=== PATIENT | male | born 1970 | race Caucasian/White ===

== ENCOUNTER 2018-07-14 18:49 | Inpatient (IN) ==
[2018-07-14] MEDS ORDERED: Morphine Inj 4 MG/ML Vial IV.PUSH ONE (19:36)
[2018-07-14] MEDS ORDERED: Sod Chloride 0.9% Inj 1,000 ML IV.SIG SCH (19:45)
--- NOTE | 2018-07-14 19:46 | ED ---
HPI General Chief complaint: Dental/Oral Stated complaint: Jaw Edema and throat pain Time Seen by Provider: 07/14/18 19:31 History of Present Illness HPI narrative: 47-year-old male seen in the emergency department 2 days ago and diagnosed with sialoadenitis on the right, advised to be admitted at that time for IV antibiotic therapy, stated he needed to be discharged home to take care of his family, was discharged home with clindamycin, reevaluated in the emergency department yesterday and was once again advised admission, however once again needed to leave to take care of his family, has been on oral clindamycin for the last 2 days, here for evaluation of worsening neck pain and swelling and inability to swallow. Pain is severe, constant, sharp/pressure- like. He has had subjective fevers and chills. States he is unable to swallow liquids. He reports compliance with clindamycin. No respiratory difficulty. Related Data Home Medications Medication Instructions Recorded Confirmed ibuprofen 800 mg PO QID PRN 07/12/18 07/14/18 Previous Rx's Medication Instructions Recorded clindamycin HCl 300 mg PO Q6H 10 Days #80 cap 07/12/18 Allergies Allergy/AdvReac Type Severity Reaction Status Date / Time penicillin G Allergy Mild Appetite Verified 07/14/18 19:03 Changes (Inc/Dec) *MDRO Multi-Drug Resistant Allergy Unknown Appetite Uncoded 07/12/18 01:32 Organism Changes (Inc/Dec) Review of Systems ROS: all other systems reviewed are negative PMFSH Social History Social History Substance History: No History of Abuse Second Hand Smoke Exposure: Yes Smoking Status: Current every day smoker Tobacco Type: Cigarettes How Often Do You Have a Drink Containing Alcohol: Monthly or less Recent Travel in [facility] within the Last 8 Weeks: No Recent Out of Country Travel within the Last 8 Weeks: No Immunization History Tetanus Immunization: Unsure Exam Narrative Exam Narrative: GENERAL: Well-developed, well-nourished, awake, alert, appears uncomfortable, no apparent distress. SKIN: Patient has a ugalde, however there is erythema and warmth to the anterior neck with underlying induration and moderate edema. HEAD: Atraumatic. Normocephalic. EYES: Pupils equal and round. No scleral icterus. No injection or drainage. ENT: 1 finger trismus with significant sublingual edema. I am unable to evaluate the patient's pharynx. Hoarse phonation. No drooling or stridor. Mucous membranes pink and moist. NECK: Patient has a ugalde, however there is erythema and warmth to the anterior neck with underlying induration and moderate edema. CARDIOVASCULAR: Regular rate and rhythm. RESPIRATORY: No accessory muscle use. Clear to auscultation. Breath sounds equal bilaterally. GASTROINTESTINAL: Abdomen soft, non-tender, nondistended. MUSCULOSKELETAL: No obvious deformities. No clubbing. No cyanosis. No edema. NEUROLOGICAL: Awake and alert. No obvious cranial nerve deficits. Motor grossly within normal limits. Normal speech. PSYCHIATRIC: Appropriate mood and affect; insight and judgment normal. Course Initial Documented Vital Signs Temperature 98.4 F 07/14/18 19:03 Pulse Rate 95 H 07/14/18 19:03 Respiratory Rate 18 07/14/18 19:03 Blood Pressure 189/78 H 07/14/18 19:03 Pulse Oximetry 98 07/14/18 19:03 Last Documented Vital Signs Temperature 98.4 F 07/14/18 19:03 Pulse Rate 78 07/14/18 21:09 Respiratory Rate 18 07/14/18 21:09 Blood Pressure 167/85 H 07/14/18 21:09 Pulse Oximetry 98 07/14/18 21:09 Critical Care Time Total Critical Care Time: 35 Attestation: Aggregate critical care time was 35 minutes. Time to perform other separately billable procedures was not included in the critical care time. My time did not include minutes spent treating any other patients simultaneously or on activities that did not directly contribute to the patient's treatment. The services I provided to this patient were to treat and/or prevent clinically significant deterioration that could result in: , permanent disability, airway compromise/failure, sepsis I provided critical care services requiring my management, as noted below: Chart data review, documentation time, medication orders and management, vital sign assessments/reviewing monitor data, ordering and reviewing lab tests, ordering and interpreting/reviewing x-rays and diagnostic studies, care of the patient and discussion of the patient with the admitting physicians. Medical Decision Making MDM Narrative Medical decision making narrative: Vital signs reviewed. The patient has been on clindamycin 600 mg every 4 hours for the last 2 days and his symptoms seem to be worsening. He is allergic to penicillin. He will be given 2 g of IV cefepime and 500 mg of IV Flagyl. Will also be given 10 mg of IV Decadron as well as 4 mg of IV morphine. CBC is remarkable for leukocytosis of 23,000. CT soft tissue neck: CONCLUSION: Interim development of a right sublingual abscess. 9:10 PM: Case discussed with on-call craniofacial surgeon Dr. Fields who would like the patient to be transferred/admitted to the [facility] after midnight, plans for I&D in the OR tomorrow morning. 9:15 PM: Case discussed with on-call breaker engineer Dr. Lucas who will admit the patient to the breaker engineer service at the main ICU. Patient was made aware of all findings and plan. All questions were answered. Medical Screen Exam Complete: Yes Emergency Medical Condition: Yes Differential Diagnosis Differential Diagnosis: Jose's angina, deep space neck infection, sialoadenitis, dehydration, sepsis Medical Records Medical records reviewed: Yes I reviewed the patient's medical records. Lab Data Result diagrams: 07/14/18 19:45 07/14/18 19:45 Lab Results 07/14/18 07/14/18 07/14/18 Range/Units 19:45 19:45 19:45 CBC w Diff Slide review pending WBC 23.7 H (4.0-11.0) th/mm3 RBC 4.74 (4.50-5.90) mil/mm3 Hgb 15.3 (13.0-17.0) gm/dL Hct 44.8 (39.0-51.0) % MCV 94.5 (80.0-100.0) fL MCH 32.2 (27.0-34.0) pg MCHC 34.0 (32.0-36.0) % RDW 12.1 (11.6-17.2) % Plt Count 173 (150-450) th/mm3 MPV 8.4 (7.0-11.0) fL Neut % (Auto) 81.4 H (16.0-70.0) % Lymph % (Auto) 8.6 L (9.0-44.0) % [place] % (Auto) 7.4 (0.0-8.0) % Eos % (Auto) 0.6 (0.0-4.0) % Baso % (Auto) 2.0 (0.0-2.0) % Neut # (Auto) 19.3 H (1.8-7.7) th/mm3 Lymph # (Auto) 2.0 (1.0-4.8) th/mm3 [place] # (Auto) 1.8 H (0.0-0.9) th/mm3 Eos # (Auto) 0.1 (0.0-0.4) th/mm3 Baso # (Auto) 0.5 H (0.0-0.2) th/mm3 WBC Differential . Diff Scan Auto diff confirmed Differential Comment . PT 10.5 (9.8-11.6) sec INR 1.0 Ratio APTT 25.7 (24.3-30.1) sec Sodium 140 (136-145) meq/L Potassium 3.7 (3.5-5.1) meq/L Chloride 105 (98-107) meq/L Carbon Dioxide 21.9 (21.0-32.0) meq/L Anion Gap 13 (5-15) meq/L BUN 16 (7-18) mg/dL Creatinine 1.20 (0.60-1.30) mg/dL Estimated GFR 65 L (>89) mL/min Random Glucose 79 (74-106) mg/dL Lactic Acid (0.4-2.0) mmol/L Calcium 8.9 (8.5-10.1) mg/dL Total Bilirubin 0.7 (0.2-1.0) mg/dL AST 18 (15-37) U/L ALT 22 (12-78) U/L Alkaline Phosphatase 58 (45-117) U/L Total Protein 7.8 (6.4-8.2) g/dL Albumin 3.5 (3.4-5.0) g/dL 07/14/18 Range/Units 19:45 CBC w Diff WBC (4.0-11.0) th/mm3 RBC (4.50-5.90) mil/mm3 Hgb (13.0-17.0) gm/dL Hct (39.0-51.0) % MCV (80.0-100.0) fL MCH (27.0-34.0) pg MCHC (32.0-36.0) % RDW (11.6-17.2) % Plt Count (150-450) th/mm3 MPV (7.0-11.0) fL Neut % (Auto) (16.0-70.0) % Lymph % (Auto) (9.0-44.0) % [place] % (Auto) (0.0-8.0) % Eos % (Auto) (0.0-4.0) % Baso % (Auto) (0.0-2.0) % Neut # (Auto) (1.8-7.7) th/mm3 Lymph # (Auto) (1.0-4.8) th/mm3 [place] # (Auto) (0.0-0.9) th/mm3 Eos # (Auto) (0.0-0.4) th/mm3 Baso # (Auto) (0.0-0.2) th/mm3 WBC Differential Diff Scan Differential Comment PT (9.8-11.6) sec INR Ratio APTT (24.3-30.1) sec Sodium (136-145) meq/L Potassium (3.5-5.1) meq/L Chloride (98-107) meq/L Carbon Dioxide (21.0-32.0) meq/L Anion Gap (5-15) meq/L BUN (7-18) mg/dL Creatinine (0.60-1.30) mg/dL Estimated GFR (>89) mL/min Random Glucose (74-106) mg/dL Lactic Acid 0.8 (0.4-2.0) mmol/L Calcium (8.5-10.1) mg/dL Total Bilirubin (0.2-1.0) mg/dL AST (15-37) U/L ALT (12-78) U/L Alkaline Phosphatase (45-117) U/L Total Protein (6.4-8.2) g/dL Albumin (3.4-5.0) g/dL Imaging Data Radiologist's impression: Soft Tissue Neck CT 07/14/18 19:36 CONCLUSION: Interim development of a right sublingual abscess. Discharge Plan Discharge Disposition Patient Disposition: 30 Still Patient Discharge Condition Condition: Fair Discharge Details Diagnosis: Abscess of sublingual gland Physicians Team ED Provider: Wade Dominique Primary Care Provider: Primary Care PhysiciIrene Rxs /Orders / Referrals /Forms Prescriptions: No Action ibuprofen 800 mg Tablet 800 mg PO QID PRN (Reason: Pain) RF: 0 clindamycin HCl 150 mg capsule 300 mg PO Q6H 10 Days Qty: 80 RF: 0 Discharge Interventions Interventions: Vital Signs Last Done: 07/14/18 21:09 Status ED Status: With Doctor
[2018-07-14] MEDS ORDERED: Dexamethasone Inj 20 MG/5 ML Vial IV.PUSH ONE (19:51)
[2018-07-14 20:02] LABS: Baso # (Auto) 0.5 th/mm3 (0.0-0.2); Eos # (Auto) 0.1 th/mm3 (0.0-0.4); Eos % (Auto) 0.6 % (0.0-4.0); Hematocrit 44.8 % (39.0-51.0); Hemoglobin 15.3 gm/dL (13.0-17.0); Lymph % (Auto) 8.6 % (9.0-44.0); Mean Corpuscular Hemoglobin 32.2 pg (27.0-34.0); Mean Corpuscular Volume 94.5 fL (80.0-100.0); Mean Platelet Volume 8.4 fL (7.0-11.0); Mono # (Auto) 1.8 th/mm3 (0.0-0.9); Mono % (Auto) 7.4 % (0.0-8.0); Neut # (Auto) 19.3 th/mm3 (1.8-7.7); Neut % (Auto) 81.4 % (16.0-70.0); Platelet Count 173 th/mm3 (150-450); Red Blood Count 4.74 mil/mm3 (4.50-5.90); Red Cell Distribution Width 12.1 % (11.6-17.2); White Blood Count 23.7 th/mm3 (4.0-11.0)
[2018-07-14 20:06] LABS: Chloride 105 meq/L (98-107); Potassium 3.7 meq/L (3.5-5.1); Sodium 140 meq/L (136-145)
[2018-07-14 20:09] LABS: Calcium 8.9 mg/dL (8.5-10.1)
[2018-07-14 20:10] LABS: Albumin 3.5 g/dL (3.4-5.0); Anion Gap 13 meq/L (5-15); Blood Urea Nitrogen 16 mg/dL (7-18); Carbon Dioxide 21.9 meq/L (21.0-32.0); Glucose,Random 79 mg/dL (74-106)
[2018-07-14 20:11] LABS: Activated Partial Thrombo Time 25.7 sec (24.3-30.1); Prothrombin Time 10.5 sec (9.8-11.6)
[2018-07-14 20:13] LABS: Alanine Aminotransferase 22 U/L (12-78); Aspartate Aminotransferase 18 U/L (15-37); Glomerular Filtration Rate 65 mL/min (>89)
[2018-07-14 20:15] LABS: Total Protein 7.8 g/dL (6.4-8.2)
[2018-07-14 20:16] LABS: Alkaline Phosphatase 58 U/L (45-117)
--- NOTE | 2018-07-14 20:57 | CT ---
EXAM DATE: 07/14/2018 8:12 PM EDT AGE/SEX: 47 years / Male INDICATIONS: Abscess. Trouble swallowing and speaking. CLINICAL DATA: This is the patient's initial encounter. Patient reports that signs and symptoms have been present for 1 week and indicates a pain score of 3/10. MEDICAL/SURGICAL HISTORY: None. . Unspecified brain surgery. RADIATION DOSE: 12.13 CTDI (mGy) COMPARISON: [facility], CT SOFT TISSUE NECK W CONTRAST, 07/12/2018. . TECHNIQUE: Helical acquisition was performed using a multirow detector CT scanner during the adminis tration of 90 ml Omnipaque 350 (iohexol) nonionic water-soluble contrast as a single exam dose. Usi ng automated exposure control and adjustment of the mA and/or kV according to patient size, radiation dose was kept as low as reasonably achievable to obtain optimal diagnostic quality images. DICOM fo rmat image data is available electronically for review and comparison. FINDINGS: A rim-enhancing fluid collection as developed in the right sublingual region measuring 3.0 x 4.4 x 3. 0 cm in size. It appears to be separate from the right submandibular gland. There are right jugular d igastric lymph nodes that measure up to 12 mm in greatest short axis dimension. No acute bony abnormality demonstrated. Visualized lung apices are clear. CONCLUSION: Interim development of a right sublingual abscess. Electronically signed by: Misael Farris MD 07/14/2018 8:56 PM EDT
[2018-07-14] MEDS ORDERED: Vancomycin Consult Pharmacy OTHER PRN (21:18)
[2018-07-14] MEDS ORDERED: Bisacodyl 10 MG Supp RECTAL PRN (21:25)
[2018-07-14] MEDS ORDERED: Morphine Sulfate Inj 2 MG/ML Vial IV.PUSH PRN (21:25)
[2018-07-14] MEDS ORDERED: Ketorolac Inj 30 MG/ML (IVP) Vial IV.PUSH PRN (21:32)
[2018-07-14] MEDS ORDERED: Vancomycin Inj 1,000 MG in Sodium Chlor 0.9% Inj 250 ML IV.SIG SCH (23:00)
[2018-07-14] MEDS: Morphine Inj 4 MG/ML Vial IV.PUSH PRN (23:36)
[2018-07-15] MEDS ORDERED: Dextrose 50% in Water 50 ML Vial IV.PUSH PRN (00:40)
--- NOTE | 2018-07-15 00:51 | P.HPCC ---
History of Present Illness Service: Critical care medicine Primary Care Physician: No Primary Care Physician Chief Complaint: Submandibular pain and swelling History of Present Illness: 47-year-old male with no significant past medical history states that he developed pain and swelling under his jaw on 07/10/18. It progressively worsened and he has been evaluated in the emergency department on 2 prior occasions for this. It was recommended that he be admitted for IV antibiotics however he refused admission because he needed to get home to care for his children. He had a CT 07/12 which suggested sialoadenitis. He has been taking clindamycin p.o. at home. Despite that he has had progressive pain and swelling in the submandibular space and now has trismus and voice changes. No fever. He has dental caries with pain at right mandibular 1st molar. He presented to [facility] where he had an additional CT scan that demonstrates sublingual abscess with laryngeal deviation. He received cefepime, Flagyl IV, Decadron 10 mg IV in the emergency department. Dr. Fields was consulted and requested transfer to [facility] for operative management. He evaluated patient with me upon arrival and has decided to take patient to OR urgently. Inpatient Certification: I certify that the inpatient services were ordered in accordance with Medicare regulations governing the order. This includes certification that hospital inpatient services are reasonable and necessary and in the case of services not specified as inpatient-only under 42 CFR 419.22(n), that they are appropriately provided as inpatient services in accordance to with the 2-midnight benchmark under 43 CFR 412.3(e) Estimated Total Length of Stay (Days): 3 Plans for Post Hospital Care: Home Review of Systems All other systems reviewed negative except as [facility] - History History Provided By: Patient - Medical History Medical History: Medical History (Last Updated 07/15/18 @ 02:41 by Barbara Lucas MD) Hx of benign neoplasm of brain Patient denies medical problems - Family History Family History: Family History (Last Updated 07/15/18 @ 02:41 by Barbara Lucas MD) Father CAD (coronary artery disease) - Tobacco History Second Hand Smoke Exposure: No Tobacco Use In Past 30 Days: Yes Smoking Status: Light tobacco smoker Tobacco Type: Cigarettes, Cigars Cigarettes Per Day: 2 - Alcohol History How Often Do You Have a Drink Containing Alcohol: 2 to 4 times a month - Substance Use History Substance History: No History of Abuse - Travel History Recent Travel in the [place] Within the Last 8 Weeks: No Recent Travel Out of the Country Within the Last 8 Weeks: No - Immunization History Tetanus Immunization: Unsure Medications and Allergies Active Medications: Active Medications Al Hydroxide/Mg Hydroxide (Milk Of Magnesia Liq) 30 ml PO Q12H PRN PRN Reason: Mild Constipation Bisacodyl (Dulcolax Supp) 10 mg RECTAL DAILY PRN PRN Reason: SEVERE CONSITIPATION Chlorhexidine Gluconate (Chlorhexidine 2% Cloth) 3 pack TOPICAL DAILY@0400 EMMA Stop: 07/20/18 03:59 Chlorhexidine Gluconate (Chlorhexidine 2% Cloth) 3 pack TOPICAL DAILY@0400 PRN PRN Reason: Extra cloth needed Stop: 07/20/18 03:59 Dexamethasone Sodium Phosphate (Decadron Inj) 8 mg IM ONCE ONE Stop: 07/15/18 14:01 Dextrose (D50w Vial) 50 ml IV.PUSH UNSCH PRN PRN Reason: PER HYPOGLYCEMIA PROTOCOL Glucagon (Glucagon Inj) 1 mg OTHER PRN PRN PRN Reason: for Hypoglycemia Protocol Sodium Chloride (Ns Inj) 1,000 mls @ 0 mls/hr IV.SIG BOLUS EMMA Last Infusion: 07/14/18 21:08 Dose: Infused Vancomycin HCl 1,000 mg/ (Sodium Chloride) 250 mls @ 250 mls/hr IV.SIG Q12H EMMA Last Admin: 07/14/18 23:38 Dose: 250 mls/hr Metronidazole/Sodium Chloride (Flagyl 500 Mg Inj) 100 mls @ 100 mls/hr IV.SIG Q8H EMMA Cefepime HCl 2,000 mg/ Sodium (Chloride) 100 mls @ 200 mls/hr IV.SIG Q8H EMMA Insulin Aspart (Novolog Insulin Correctional Sugar Inj) 0 unit SQ ACHS EMMA; Protocol Ketorolac Tromethamine (Toradol Inj) 30 mg IV.PUSH Q6H PRN PRN Reason: pain Stop: 07/19/18 21:31 Lactobacillus Acidophilus (Lactinex) 1 tab PO BID EMMA Lactulose (Lactulose Liq) 30 ml PO DAILY PRN PRN Reason: SEVERE CONSITIPATION Methylprednisolone Sodium Succinate (Solumedrol Inj) 125 mg IV.PUSH Q6H EMMA Stop: 07/15/18 07:01 Miscellaneous Information ([facility]dered Lab Info) 0 each OTHER ONCE ONE Stop: 07/16/18 10:46 Morphine Sulfate (Morphine Inj) 2 mg IV.PUSH Q2H PRN PRN Reason: breakthrough pain 1-5 Morphine Sulfate (Morphine Inj) 4 mg IV.PUSH Q2H PRN PRN Reason: breakthrough pain 6-10 Last Admin: 07/14/18 23:36 Dose: 4 mg Ondansetron HCl (Zofran Inj) 4 mg IV.PUSH Q6H PRN PRN Reason: NAUSEA OR VOMITING Pantoprazole Sodium (Protonix Inj) 40 mg IV.PUSH DAILY [facility] Pharmacy Profile Note (Vancomycin Consult Pharmacy) 1 each OTHER UNSCH PRN PRN Reason: Pharmacy to dose Senna/Docusate Sodium (Lydia-Colace) 1 tab PO BID [facility] Sennosides (Senokot) 17.2 mg PO Q12H PRN PRN Reason: Moderate Constipation Sodium Chloride (Ns Flush) 2 ml IV.FLUSH BID [facility] Sodium Chloride (Ns Flush) 2 ml IV.FLUSH PRN PRN PRN Reason: FLUSH AFTER USING IV ACCESS Allergies Allergy/AdvReac Type Severity Reaction Status Date / Time penicillin G Allergy Mild Appetite Verified 07/14/18 19:03 Changes (Inc/Dec) *MDRO Multi-Drug Resistant Allergy Unknown Appetite Uncoded 07/12/18 01:32 Organism Changes (Inc/Dec) Home Medications Medication Instructions Recorded Confirmed Type ibuprofen 800 mg PO QID PRN 07/12/18 07/14/18 History Results - Labs CBC & Chem 7: 07/14/18 19:45 07/14/18 19:45 Labs: Short CBC 07/14/18 Range/Units 19:45 WBC 23.7 H (4.0-11.0) th/mm3 Hgb 15.3 (13.0-17.0) gm/dL Hct 44.8 (39.0-51.0) % Plt Count 173 (150-450) th/mm3 BMP 07/14/18 19:45 Sodium 140 Potassium 3.7 Chloride 105 Carbon Dioxide 21.9 BUN 16 Creatinine 1.20 Calcium 8.9 Liver Function 07/14/18 Range/Units 19:45 Total Bilirubin 0.7 (0.2-1.0) mg/dL AST 18 (15-37) U/L ALT 22 (12-78) U/L Alkaline Phosphatase 58 (45-117) U/L Albumin 3.5 (3.4-5.0) g/dL - Imaging Impressions Soft Tissue Neck CT 07/14/18 19:36 CONCLUSION: Interim development of a right sublingual abscess. Exam Vital signs: Vital Signs 07/14/18 19:03 07/14/18 19:17 07/14/18 19:51 Temperature 98.4 F Pulse Rate 95 H 87 Respiratory Rate 18 18 Blood Pressure 189/78 H Pulse Oximetry 98 98 98 07/14/18 21:09 07/14/18 21:57 07/14/18 22:07 Temperature Pulse Rate 78 81 Respiratory Rate 18 18 Blood Pressure 167/85 H 166/84 H Pulse Oximetry 98 98 98 07/14/18 22:46 Temperature Pulse Rate 78 Respiratory Rate 18 Blood Pressure Pulse Oximetry 98 Intake & Output 07/14/18 07/14/18 07/15/18 06:59 18:59 06:59 Intake Total 1200 / 1200 Balance 1200 / 1200 Weight 84.8 kg Intake: IV 1200 / 1200 Maxipime Inj 2,000 MG In NS Inj 100 / 100 100 ML @ 200 mls/hr IV.SIG ONCE ONE Rx#:[id number] NS Inj 1,000 ML @ Wide Open IV. 1000 / 1000 SIG BOLUS EMMA Rx#:[id number] Flagyl 500 MG Inj 100 ML @ 100 100 / 100 mls/hr IV.SIG ONCE ONE Rx#: [id number] Narrative: GENERAL: Well-nourished, well-developed patient who is alert and interactive. Slightly anxious SKIN: Warm and dry. HEAD: Atraumatic. Normocephalic. EYES: Pupils equal and round. No scleral icterus. No injection or drainage. ENT: There is firm tender mass-like swelling in submandibular space, R>L with mild/moderate trismus. There is decay of right first mandibular molar. No nasal bleeding or discharge. Mucous membranes pink and moist. NECK: No JVD. CARDIOVASCULAR: Regular rate and rhythm. No murmurs rubs or gallops. RESPIRATORY: Breathing comfortably no accessory muscle use. Clear to auscultation bilaterally without stridor. GASTROINTESTINAL: Abdomen soft, non-tender, nondistended. Bowel sounds present. MUSCULOSKELETAL: Extremities without clubbing, cyanosis, or edema. No obvious deformities. NEUROLOGICAL: Awake and alert. No obvious cranial nerve deficits. Motor grossly within normal limits. Caprini VTE Risk Assessment Caprini VTE Risk Assessment: Moderate/High Risk (score >= 2) Caprini Risk Assessment Model: Point Value = 1 Point Value = 2 Point Value = 3 Point Value = 5 Age 41-60 Minor surgery BMI > 25 kg/m2 Swollen legs Varicose veins or History of unexplained or recurrent spontaneous Oral contraceptives or hormone replacement Sepsis (< 1 month) Serious lung disease, including pneumonia (< 1 month) Abnormal pulmonary function Acute myocardial infarction Congestive heart failure (< 1 month) History of inflammatory bowel disease Medical patient at bed rest Age 61-74 Arthroscopic surgery Major open surgery (> 45 min) Laparoscopic surgery (> 45 min) Malignancy Confined to bed (> 72 hours) Immobilizing plaster cast Central venous access Age >= 75 History of VTE Family history of VTE Factor V Leiden Prothrombin [id number] Lupus anticoagulant Anticardiolipin antibodies Elevated serum homocysteine Heparin-induced thrombocytopenia Other congenital or acquired thrombophilia Stroke (< 1 month) Elective arthroplasty Hip, pelvis, or leg fracture Acute spinal cord injury (< 1 month) Prophylaxis Regimen: Total Risk Factor Score Risk Level Prophylaxis Regimen 0-1 Low Early ambulation 2 Moderate Order ONE of the following: *Sequential Compression Device (SCD) *Heparin 5000 units SQ BID 3-4 Higher Order ONE of the following medications: *Heparin 5000 units SQ TID *Enoxaparin/Lovenox 40 mg SQ daily (WT < 150 kg, CrCl > 30 mL/min) *Enoxaparin/Lovenox 30 mg SQ daily (WT < 150 kg, CrCl > 10-29 mL/min) *Enoxaparin/Lovenox 30 mg SQ BID (WT < 150 kg, CrCl > 30 mL/min) AND/OR *Sequential Compression Device (SCD) 5 or more Highest Order ONE of the following medications: *Heparin 5000 units SQ TID (Preferred with Epidurals) *Enoxaparin/Lovenox 40 mg SQ daily (WT < 150 kg, CrCl > 30 mL/min) *Enoxaparin/Lovenox 30 mg SQ daily (WT < 150 kg, CrCl > 10-29 mL/min) *Enoxaparin/Lovenox 30 mg SQ BID (WT < 150 kg, CrCl > 30 mL/min) AND *Sequential Compression Device (SCD) Assessment and Plan - Assessment and Plan Plan: NEURO: Toradol as needed for pain. Morphine as needed for breakthrough pain. Fentanyl/propofol drips and versed prn for sedation postoperatively. Target RASS -2 to -3. RESP: On room air pre-op Acute respiratory failure Tobacco abuse Remains intubated post-operatively per Dr. Fields for maintenance of airway. PRVC/Vent Bundle/Albuterol prn CV: Monitor vitals GI: NPO FEN/RENAL: Normal creatinine and electrolytes. Monitor intake and output. Monitor electrolytes and replace as indicated. LR 100 mL/h ID: Right sublingual and submandibular abscess with dental caries Leukocytosis Operative debridement and dental extraction will be performed by Dr. Fields. His assistance is very much appreciated. Patient states he has been told since childhood that he is allergic to penicillin. He is uncertain of the nature of the reaction. He has failed outpatient management with clindamycin.. He did receive cefepime and Flagyl in the emergency department and has not had any evidence of allergic reaction. Will continue cefepime/flagyl and add vancomycin for now. Dr. Fields will perform intraoperative cultures, so will narrow antibiotics based on culture results and sensitivities. I have also ordered blood cultures Received Decadron [address] Fields recommendations, will give Solumedrol 125 mg IV q6 hours x2 doses and then Decadron 8 mg IM. HEME: No acute hematologic issues. ENDO: Monitor bedside glucose AC/hs while on steroids and administer low-dose insulin sliding scale as indicated. PROPH: SCDs for DVT prophylaxis. Held off on pharmacologic DVT prophylaxis at this time as he is going to the OR. Protonix 40 mg IV daily for stress ulcer prophylaxis as he is n.p.o. and on steroids. ACCESS: Peripheral IV providing adequate access at this time. Full code I have updated patient at bedside. Discussed with Dr. Fields. Patient has been admitted to [facility] for monitoring because submandibular infection is causing airway deviation and could result in airway compromise. Level 3 H&P H&P: Quality - VTE Deep Vein Thrombosis/Pulmonary Embolism Present on Admission: Yes
[2018-07-15] MEDS: MethylPREDNISolone Sod Succinate Inj 125 MG/2 ML Vial IV.PUSH SCH ×2 (00:54→09:02)
--- NOTE | 2018-07-15 00:57 | MB ---
cc: Azael Fields DMD DATE: 07/15/2018 REASON FOR CONSULTATION: Neck swelling, tooth pain. HISTORY OF PRESENT ILLNESS: This is a 47-year-old pleasant male I have seen and examined early this morning. He reports that since last Tuesday it has been having swelling into his neck with some associated tooth pain. Points to his molar on the lower right hand side, which has been broken down for a long time. He was discharged home with p.o. antibiotics, clindamycin as he is ALLERGIC TO PENICILLIN, but he wanted to go and take out his family, but he kept coming back and progressively getting worse. He presents back today because it has gotten worse. Now, he is saying his voice has changed, painful swallowing/difficulty swallowing. He feels like his tongue is being pushed up. He denies any fever, chills, nausea, vomiting, any shortness of breath or any difficulty breathing. PAST MEDICAL HISTORY: Denied. MEDICATIONS: Denied. ALLERGIES: PENICILLIN. SOCIAL HISTORY: Alcohol: Denied. Smoking daily. Denies any illicit drug use. PAST SURGICAL HISTORY: Reports childhood brain surgery. PHYSICAL EXAMINATION: VITAL SIGNS: Temperature 98.4, pulse is 78, respiration rate 18, blood pressure is 166/84 with oxygen saturation of 98. HEAD AND NECK: Examination shows edema from the submental-sublingual region extending down to the right submandibular region. Tenderness in the submental-sublingual region towards the right side extending down to the right submandibular region. The trachea appears to be midline; however, because of the edema not able to fully assess the position. Intraorally, I can see that there is elevation in the floor of the mouth; however, I do not see that elevation over the occlusal surface of these teeth. He has limited opening. Chronic pain. Able to open approximately 18 mm. I do not see any pus that is coming out at this point. I see tooth #30 that is broken. The rest of the examination is limited as he is guarding against pain, not letting me fully examine. His tongue is elevated so I am not able at this point see the posterior oropharynx. DIAGNOSTIC DATA: CT scan of the facial bones shows a collection in the right sublingual-submental region going down to the right submandibular region, almost 5 x almost 3 cm. Soft tissue edema. Some rajeev involvement. LABORATORY DATA: White count is 23.7 with an H and H of 15.3 and 44.8 with a platelet count of 173. PT is 10.5. INR is 1.0 with a PTT of 27.5. IMPRESSION AND PLAN: This is a 47-year-old male with a longstanding history of broken tooth, painful tooth, and now failed outpatient therapy with clindamycin, who presents with a right neck mandibular multispace infection involving the submental, sublingual, submandibular space region. The plan is to take the patient to the operating room and drain this multispace infection, extract tooth #30. Do an examination under anesthesia. Benefits, risks and indications of the procedure, procedure in detail, and the options of no treatment were all discussed with this patient. Risks not limited to any postop pain, infection, bleeding, damage to adjacent soft tissue or hard tissue, anesthesia complications, numbness, further surgeries as required, the patient is aware that he will be shaved for me to properly assess this in the operating room, further recurrence of any infection as it may need further surgeries. The patient is aware that he may be left intubated overnight also. ADDENDUM: The offending tooth source appears it is tooth #31 not #30. Tooth #31 is broken down. RADIOGRAPHIC DATA: CT scan shows deviation/displacement of the trachea to the left. MEAGHAN Esqueda/johnie , 12:19 AM , 12:30 AM
[2018-07-15] MEDS ORDERED: Chlorhexidine Gluconate 0.12% Liq 15 ML UDC ONE (01:02)
[2018-07-15] MEDS ORDERED: Lidocaine 2%/Epinephrine 1:200,000 PF Inj 20 ML Vial ONE (01:02)
[2018-07-15] MEDS ORDERED: Microfibrillar Collagen Hemostat 1 GM Packet TOPICAL ONE (01:02)
[2018-07-15] MEDS ORDERED: Succinylcholine Inj 100 MG/5 ML Syringe IV.PUSH ONE (01:29)
[2018-07-15] MEDS ORDERED: Lidocaine PF 1% Inj 5 ML Syringe OTHER ONE (01:29)
[2018-07-15] MEDS ORDERED: Glycopyrrolate Inj 1 MG/5 ML Syringe IV.PUSH ONE (01:29)
[2018-07-15] MEDS ORDERED: Propofol 1000 mg/100 ml Inj 1,000 MG/100 ML BOTTLE IV.CONT PRN (03:00)
[2018-07-15] MEDS ORDERED: fentaNYL Citrate Inj 100 MCG/2 ML Ampul IV.PUSH ONE (03:01)
[2018-07-15] MEDS ORDERED: fentaNYL 10 mcg/mL Premix Drip 2,500 MCG/250 ML BAG IV.SIG PRN (03:01)
[2018-07-15] MEDS ORDERED: fentaNYL Citrate Inj 100 MCG/2 ML Ampul ONE (03:02)
[2018-07-15] MEDS ORDERED: Morphine Inj 4 MG/ML Vial ONE (03:02)
[2018-07-15] MEDS ORDERED: Chlorhexidine Gluconate 2% 1 Pack (2 Cloths) TOPICAL PRN (04:00)
[2018-07-15] MEDS: Oral Hygiene Kit OROPHARYNG SCH ×3 (05:08→18:02)
[2018-07-15] MEDS: Chlorhexidine Gluconate 2% 1 Pack (2 Cloths) TOPICAL SCH (05:09)
--- NOTE | 2018-07-15 06:22 | XR ---
EXAM DATE: 07/15/2018 12:00 AM EDT AGE/SEX: 47 years / Male INDICATIONS: Respiratory disease. CLINICAL DATA: This is the patient's subsequent encounter. Patient reports that signs and symptoms h ave been present for 2 days and indicates a pain score of Nonresponsive. MEDICAL/SURGICAL HISTORY: . Smoker. . Unspecified brain surgery. COMPARISON: . FINDINGS: Endotracheal tube is present with tip 5-6 cm above the lynda. There is slight basilar parenchymal op acity. Cardiac contours are satisfactory for technique and projection. CONCLUSION: Minimal basilar parenchymal opacities Electronically signed by: Misael Kumar MD 07/15/2018 6:21 AM EDT
[2018-07-15 07:13] LABS: Mean Corpuscular HGB Conc 34.3 % (32.0-36.0); Mean Corpuscular Hemoglobin 32.2 pg (27.0-34.0); Mean Corpuscular Volume 93.8 fL (80.0-100.0); Mean Platelet Volume 8.6 fL (7.0-11.0); Platelet Count 164 th/mm3 (150-450); Red Blood Count 4.05 mil/mm3 (4.50-5.90); Red Cell Distribution Width 13.1 % (11.6-17.2); White Blood Count 22.4 th/mm3 (4.0-11.0)
[2018-07-15 07:32] LABS: Calcium 7.8 mg/dL (8.5-10.1); Carbon Dioxide 21.6 meq/L (21.0-32.0); Potassium 4.8 meq/L (3.5-5.1)
[2018-07-15] MEDS ORDERED: Insulin NovoLOG Aspart Correctional Sugar Inj SQ SCH (08:00)
[2018-07-15 08:15] LABS: Lymphocytes 2 % (9-44); Platelet Estimate Normal (Normal); Platelet Morphology Normal (Normal)
[2018-07-15] MEDS: Chlorhexidine 0.12% Oral Kit 15 ML UDC OROPHARYNG SCH ×2 (08:17→20:36)
[2018-07-15] MEDS: Senna/Docusate Sodium 8.6/50 MG Tablet PO SCH ×2 (08:18→20:58)
[2018-07-15] MEDS: Lactobacillus Acidophilus/L. Spores Tablet PO SCH ×2 (08:18→20:58)
--- NOTE | 2018-07-15 08:45 | MP ---
cc: Azael Fields DMD DATE OF OPERATION: 07/15/2018 PREOPERATIVE DIAGNOSIS: Right mandible/neck multispace infection involving the right submandibular, sublingual region, also decayed tooth #31/broken tooth #31. POSTOPERATIVE DIAGNOSIS: Right mandible/neck multispace infection involving the right submandibular, sublingual region, also decayed tooth #31/broken tooth #31. PROCEDURE PERFORMED: Incision and drainage of the right mandible/neck multispace infection with surgical extraction of tooth #31. ANESTHESIA: General. Also, 2% lidocaine with 1:200,000 epinephrine, approximately 9 mL. SURGEON: Azael Fields DMD SEAM SEWER: Norman from the OR staff. ESTIMATED BLOOD LOSS: About 5 mL. COMPLICATIONS: None. DISPOSITION: The patient tolerated the procedure well. INDICATIONS: Mr. Barbosa is a 47-year-old male who at least from last Tuesday has been having this swelling and pain starting from tooth #31 and extending down into his neck. He was treated and sent home. He will have to go home to take care of his family and came back several times, not responding to his antibiotic. Now, he presents with a change in voice, difficulty swallowing/painful swallowing, deviation of his airway to the left, difficulty opening his mouth, elevation of the floor of the mouth spread to the anterior part and his tongue. In order to restore proper form and function it is necessary for the patient to undergo the above-listed procedures. Benefits, risks and indications of the procedure, procedure in detail, and the options of no treatment were all discussed with this patient. Risks not limited to any postop pain, infection, bleeding, damage to the adjacent teeth, soft tissue or hard tissue or anesthesia complications, numbness, recurrence of the infection. All questions and concerns were addressed. Consent is signed in the chart. The patient was also advised to see his dentist. PROCEDURE DETAILS: The patient was met preoperatively. All questions and concerns were addressed. The right side of the surgical site was marked. He was taken to the operating room #8, put on the table in a supine position. He underwent fiberoptic oral intubation. It is noted there is some shifting of the airway to the left, but no constriction. Eyes were taped shut. All pressure points were padded. At this time, a timeout was taken to identify the patient, the site, the procedure, surgeon. All were in agreement. The neck was shaved. Betadine prep was done over the surgical site. The patient was draped in normal sterile fashion. A bite block was placed in the left side of the mouth. The back of the throat was suctioned. There was no deviation of the uvula. There is no edema in the posterior pharynx. A moistened Ray-Chelsea was used as a throat pack. Mouth was irrigated with saline solution. Then, 2% lidocaine with 1:200,000 epinephrine was injected, inferior alveolar nerve block around #31 side long buccal. Also, then into the neck, sublingual, submandibular space region. A 15 blade was used to now make a sulcular incision around #31. A trough was made around it and the crowns and the roots were sectioned, elevated forceps were used to extract the tooth. All the checking on the other teeth on the right quadrant appears stable. Tooth #18 on the left side is broken down somewhat. Some elevation (anterior/right) of floor of the mouth is also noted. At this point, I took a periosteal elevator, went to subperiosteally on the buccal/lateral aspect of the mandible, on the inferior border of the mandible going to the angle of the mandible, no pus noted. I then took the periosteal elevator, went to the lingual aspect, went straight down to the posterior part of the medial aspect of the mandible towards the angle and the pharyngeal space, no pus was noted. Coming back anterior towards the tongue, the superior aspect of that submandibular region, going down to the sublingual region, pus just poured right out. The pus pocket was noted now and pus just came out. Cultures were now taken out and sent. Once there was no more pus noted, the whole site was also irrigated with saline solution. The pus also came out of the extraction socket. This was all irrigated with saline solution. An 18-gauge needle was used to aspirate on the right side of the neck. A small amount of pus was noted to come out of there. A 15 blade was used to make an incision in the right sublingual, submental region site. Hemostat was used to do blunt dissection superiorly, inferiorly, medially, and laterally. No more pus was noted. Irrigated with saline solution, put a 1/4-inch Devika drain and secured into position using 2-0 silk suture. I did the same thing on the lingual aspect of the #31 site, put a 1/4-inch [place] drain, secured it with a 2-0 silk suture. A chromic suture was used to close the extraction socket. Once this was done, the site was all once again irrigated with saline solution. The back of the throat was suctioned. The moistened Ray-Chelsea throat pack was removed. Bite block was removed. The neck was closed with a 4 x 4 dressing and a Harjit dressing. The patient is going to stay intubated due to the manipulation, pain control and risk of increased edema. The patient is going to be returned back to the ICU. The patient tolerated the procedure well. No complications noted. All sponge and needle counts were accounted for at the end of the case. MEAGHAN Esqueda/johnie/meaghan , 03:11 AM , 03:22 AM SASHA
[2018-07-15] MEDS: Pantoprazole Inj 40 MG Vial IV.PUSH SCH (09:02)
--- NOTE | 2018-07-15 10:41 | P.PN ---
Subjective Interval history: POD 0 s/p I & D right mandible/neck multispace abscess and extraction of tooth # 31 pt seen and examined this morning aao, nad, intubated orally - vent following commands, appears happy Physical Exam Vital signs: Vital Signs 07/14/18 19:03 07/14/18 19:17 07/14/18 19:51 Temperature 98.4 F Pulse Rate 95 H 87 Respiratory Rate 18 18 Blood Pressure 189/78 H Pulse Oximetry 98 98 98 07/14/18 21:09 07/14/18 21:57 07/14/18 22:07 Temperature Pulse Rate 78 81 Respiratory Rate 18 18 Blood Pressure 167/85 H 166/84 H Pulse Oximetry 98 98 98 07/14/18 22:46 07/14/18 23:15 07/15/18 00:00 Temperature Pulse Rate 78 76 76 Respiratory Rate 18 Blood Pressure Pulse Oximetry 98 98 07/15/18 02:45 07/15/18 03:20 07/15/18 04:00 Temperature Pulse Rate 90 62 Respiratory Rate 14 Blood Pressure Pulse Oximetry 97 07/15/18 06:00 07/15/18 07:40 07/15/18 07:52 Temperature Pulse Rate 54 L Respiratory Rate 16 15 Blood Pressure Pulse Oximetry 99 99 07/15/18 08:00 Temperature 97.1 F L Pulse Rate 72 Respiratory Rate 14 Blood Pressure 124/69 Pulse Oximetry 100 Intake & Output 07/14/18 07/15/18 07/15/18 18:59 06:59 18:59 Intake Total 2750 / 2750 140 / 140 Output Total 5 / 5 Balance 2745 / 2745 140 / 140 Weight 90.2 kg Intake: IV 1550 / 1550 140 / 140 Diprivan 1000 mg/100 ml Inj 1, 40 / 40 000 mg In 100 ml @ 5 MCG/KG/MIN 2.688 mls/hr IV.CONT TITRATE PRN Rx#:[id number] Maxipime Inj 2,000 MG In NS Inj 100 / 100 100 / 100 100 ML @ 200 mls/hr IV.SIG Q8H EMMA Rx#:[id number] NS Inj 1,000 ML @ Wide Open IV. 1000 / 1000 SIG BOLUS EMMA Rx#:[id number] Vancomycin Inj 1,000 MG In NS 250 / 250 Inj 250 ML @ 250 mls/hr IV.SIG Q12H EMMA Rx#:[id number] Flagyl 500 MG Inj 100 ML @ 100 200 / 200 mls/hr IV.SIG Q8H EMMA Rx#: [id number] Anesthesia Amount 1200 / 1200 Output: Estimated Blood Loss 5 / 5 Other: # Voids 1 Date of Last Bowel Movement 07/13/18 07/13/18 # Bowel Movements 0 Weight On Admission 89.6 kg - Constitutional no acute distress - Routine HEENT Exam Head: Present: normocephalic - Detailed ENT Exam Oropharynx: Absent: drooling Oral mucosa: Present: moist Tongue: Absent: elevation, swelling Dentition: Present: dental caries, fractured tooth Comments: following commands neck soft - drain in place, dressing dry, no pus/bleeding noted significant decrease in right neck edema intraorally - ett in place drain in place - no discharge noted does not appear to have tongue elevation surgical sites hemostatic - all wound margins well approximated cultures pending - Routine Neck Exam Present: supple, trachea midline Results - Labs CBC & Chem 7: 07/15/18 06:36 07/15/18 06:36 Laboratory Results - last 24 hr 07/14/18 07/14/18 07/14/18 19:45 19:45 19:45 CBC w Diff Slide review pending WBC 23.7 H RBC 4.74 Hgb 15.3 Hct 44.8 MCV 94.5 MCH 32.2 MCHC 34.0 RDW 12.1 Plt Count 173 MPV 8.4 Prelim Diff (Auto) Neut % (Auto) 81.4 H Lymph % (Auto) 8.6 L [place] % (Auto) 7.4 Eos % (Auto) 0.6 Baso % (Auto) 2.0 Neut # (Auto) 19.3 H Lymph # (Auto) 2.0 [place] # (Auto) 1.8 H Eos # (Auto) 0.1 Baso # (Auto) 0.5 H WBC Differential . Diff Scan Auto diff confirmed Seg Neuts % (Manual) Band Neuts % (Manual) Lymphocytes % (Manual) Abs Neuts (Manual) Differential Comment . Platelet Estimate Platelet Morphology PT 10.5 INR 1.0 APTT 25.7 Sodium 140 Potassium 3.7 Chloride 105 Carbon Dioxide 21.9 Anion Gap 13 BUN 16 Creatinine 1.20 Estimated GFR 65 L Random Glucose 79 Lactic Acid Calcium 8.9 Total Bilirubin 0.7 AST 18 ALT 22 Alkaline Phosphatase 58 Total Protein 7.8 Albumin 3.5 Nasal Screen MRSA (PCR) 07/14/18 07/15/18 07/15/18 19:45 04:08 06:36 CBC w Diff WBC 22.4 H RBC 4.05 L Hgb 13.0 D Hct 38.0 L MCV 93.8 MCH 32.2 MCHC 34.3 RDW 13.1 Plt Count 164 MPV 8.6 Prelim Diff (Auto) Manual diff required Neut % (Auto) Lymph % (Auto) [place] % (Auto) Eos % (Auto) Baso % (Auto) Neut # (Auto) Lymph # (Auto) [place] # (Auto) Eos # (Auto) Baso # (Auto) WBC Differential Manual diff final Diff Scan Seg Neuts % (Manual) 91 H Band Neuts % (Manual) 7 H Lymphocytes % (Manual) 2 L Abs Neuts (Manual) 22.0 H Differential Comment . Platelet Estimate Normal Platelet Morphology Normal PT INR APTT Sodium Potassium Chloride Carbon Dioxide Anion Gap BUN Creatinine Estimated GFR Random Glucose Lactic Acid 0.8 Calcium Total Bilirubin AST ALT Alkaline Phosphatase Total Protein Albumin Nasal Screen MRSA (PCR) Not detected 07/15/18 06:36 CBC w Diff WBC RBC Hgb Hct MCV MCH MCHC RDW Plt Count MPV Prelim Diff (Auto) Neut % (Auto) Lymph % (Auto) [place] % (Auto) Eos % (Auto) Baso % (Auto) Neut # (Auto) Lymph # (Auto) [place] # (Auto) Eos # (Auto) Baso # (Auto) WBC Differential Diff Scan Seg Neuts % (Manual) Band Neuts % (Manual) Lymphocytes % (Manual) Abs Neuts (Manual) Differential Comment Platelet Estimate Platelet Morphology PT INR APTT Sodium 143 Potassium 4.8 D Chloride 111 H Carbon Dioxide 21.6 Anion Gap 10 BUN 17 Creatinine 1.04 Estimated GFR 77 L Random Glucose 119 H Lactic Acid Calcium 7.8 L D Total Bilirubin AST ALT Alkaline Phosphatase Total Protein Albumin Nasal Screen MRSA (PCR) Microbiology 07/15/18 02:15 Abscess - Mouth Gram Stain - Final 07/15/18 02:15 Abscess - Mouth Gram Stain - Final - Imaging Impressions Soft Tissue Neck CT 07/14/18 19:36 CONCLUSION: Interim development of a right sublingual abscess. Chest X-Ray 07/15/18 00:00 CONCLUSION: Minimal basilar parenchymal opacities Assessment and Plan - Assessment (1) Tooth abscess Code(s): K04.7 - Periapical abscess without sinus Status: Acute (2) Abscess of sublingual gland Code(s): K11.3 - Abscess of salivary gland Status: Acute - Plan ok to wean to extubate from OMS standpoint speech/swallow eval will follow
[2018-07-15] MEDS: Vancomycin Inj 1,500 MG in Sodium Chlor 0.9% Inj 500 ML IV.SIG SCH ×2 (11:30→23:08)
--- NOTE | 2018-07-15 13:12 | ECG ---
Date Performed: 07/14/2018 Time Performed: 21:38:35 PTAGE: 47 years EKG: Sinus rhythm NORMAL ECG NO PREVIOUS TRACING DOCTOR: Yovana Jacques Interpretating Date/Time 07/15/2018 13:08:44
--- NOTE | 2018-07-15 16:19 | P.PN ---
Subjective Interval history: Patient was examined by Dr. Fields this morning and then extubated shortly thereafter. He controls his airway well and is been breathing comfortably. He does have some mandibular soreness on the right side but he is handling his secretions well and no problems with swallowing. Plan to continue intravenous antibiotics overnight and discharge him in the morning on oral antibiotics. Physical Exam Vital signs: Vital Signs 07/14/18 19:03 07/14/18 19:17 07/14/18 19:51 Temperature 98.4 F Pulse Rate 95 H 87 Respiratory Rate 18 18 Blood Pressure 189/78 H Pulse Oximetry 98 98 98 07/14/18 21:09 07/14/18 21:57 07/14/18 22:07 Temperature Pulse Rate 78 81 Respiratory Rate 18 18 Blood Pressure 167/85 H 166/84 H Pulse Oximetry 98 98 98 07/14/18 22:46 07/14/18 23:15 07/15/18 00:00 Temperature Pulse Rate 78 76 76 Respiratory Rate 18 Blood Pressure Pulse Oximetry 98 98 07/15/18 02:45 07/15/18 03:20 07/15/18 04:00 Temperature Pulse Rate 90 62 Respiratory Rate 14 Blood Pressure Pulse Oximetry 97 07/15/18 06:00 07/15/18 07:40 07/15/18 07:52 Temperature Pulse Rate 54 L Respiratory Rate 16 15 Blood Pressure Pulse Oximetry 99 99 07/15/18 08:00 07/15/18 10:47 07/15/18 10:56 Temperature 97.1 F L Pulse Rate 72 Respiratory Rate 14 29 H Blood Pressure 124/69 Pulse Oximetry 100 100 99 Intake & Output 07/14/18 07/15/18 07/15/18 18:59 06:59 18:59 Intake Total 2750 / 2750 240 / 240 Output Total 5 / 5 Balance 2745 / 2745 240 / 240 Weight 90.2 kg Intake: IV 1550 / 1550 240 / 240 Diprivan 1000 mg/100 ml Inj 1, 40 / 40 000 mg In 100 ml @ 5 MCG/KG/MIN 2.688 mls/hr IV.CONT TITRATE PRN Rx#:[id number] Maxipime Inj 2,000 MG In NS Inj 100 / 100 100 / 100 100 ML @ 200 mls/hr IV.SIG Q8H EMMA Rx#:[id number] NS Inj 1,000 ML @ Wide Open IV. 1000 / 1000 SIG BOLUS EMMA Rx#:[id number] Vancomycin Inj 1,000 MG In NS 250 / 250 Inj 250 ML @ 250 mls/hr IV.SIG Q12H EMMA Rx#:[id number] Flagyl 500 MG Inj 100 ML @ 100 200 / 200 100 / 100 mls/hr IV.SIG Q8H EMMA Rx#: [id number] Anesthesia Amount 1200 / 1200 Output: Estimated Blood Loss 5 / 5 Other: # Voids 1 Date of Last Bowel Movement 07/13/18 07/13/18 # Bowel Movements 0 Weight On Admission 89.6 kg Results - Labs CBC & Chem 7: 07/15/18 06:36 07/15/18 06:36 Laboratory Results - last 24 hr 07/14/18 07/14/18 07/14/18 19:45 19:45 19:45 CBC w Diff Slide review pending WBC 23.7 H RBC 4.74 Hgb 15.3 Hct 44.8 MCV 94.5 MCH 32.2 MCHC 34.0 RDW 12.1 Plt Count 173 MPV 8.4 Prelim Diff (Auto) Neut % (Auto) 81.4 H Lymph % (Auto) 8.6 L [place] % (Auto) 7.4 Eos % (Auto) 0.6 Baso % (Auto) 2.0 Neut # (Auto) 19.3 H Lymph # (Auto) 2.0 [place] # (Auto) 1.8 H Eos # (Auto) 0.1 Baso # (Auto) 0.5 H WBC Differential . Diff Scan Auto diff confirmed Seg Neuts % (Manual) Band Neuts % (Manual) Lymphocytes % (Manual) Abs Neuts (Manual) Differential Comment . Platelet Estimate Platelet Morphology PT 10.5 INR 1.0 APTT 25.7 Sodium 140 Potassium 3.7 Chloride 105 Carbon Dioxide 21.9 Anion Gap 13 BUN 16 Creatinine 1.20 Estimated GFR 65 L Random Glucose 79 Lactic Acid Calcium 8.9 Total Bilirubin 0.7 AST 18 ALT 22 Alkaline Phosphatase 58 Total Protein 7.8 Albumin 3.5 Nasal Screen MRSA (PCR) 07/14/18 07/15/18 07/15/18 19:45 04:08 06:36 CBC w Diff WBC 22.4 H RBC 4.05 L Hgb 13.0 D Hct 38.0 L MCV 93.8 MCH 32.2 MCHC 34.3 RDW 13.1 Plt Count 164 MPV 8.6 Prelim Diff (Auto) Manual diff required Neut % (Auto) Lymph % (Auto) [place] % (Auto) Eos % (Auto) Baso % (Auto) Neut # (Auto) Lymph # (Auto) [place] # (Auto) Eos # (Auto) Baso # (Auto) WBC Differential Manual diff final Diff Scan Seg Neuts % (Manual) 91 H Band Neuts % (Manual) 7 H Lymphocytes % (Manual) 2 L Abs Neuts (Manual) 22.0 H Differential Comment . Platelet Estimate Normal Platelet Morphology Normal PT INR APTT Sodium Potassium Chloride Carbon Dioxide Anion Gap BUN Creatinine Estimated GFR Random Glucose Lactic Acid 0.8 Calcium Total Bilirubin AST ALT Alkaline Phosphatase Total Protein Albumin Nasal Screen MRSA (PCR) Not detected 07/15/18 06:36 CBC w Diff WBC RBC Hgb Hct MCV MCH MCHC RDW Plt Count MPV Prelim Diff (Auto) Neut % (Auto) Lymph % (Auto) [place] % (Auto) Eos % (Auto) Baso % (Auto) Neut # (Auto) Lymph # (Auto) [place] # (Auto) Eos # (Auto) Baso # (Auto) WBC Differential Diff Scan Seg Neuts % (Manual) Band Neuts % (Manual) Lymphocytes % (Manual) Abs Neuts (Manual) Differential Comment Platelet Estimate Platelet Morphology PT INR APTT Sodium 143 Potassium 4.8 D Chloride 111 H Carbon Dioxide 21.6 Anion Gap 10 BUN 17 Creatinine 1.04 Estimated GFR 77 L Random Glucose 119 H Lactic Acid Calcium 7.8 L D Total Bilirubin AST ALT Alkaline Phosphatase Total Protein Albumin Nasal Screen MRSA (PCR) Microbiology 07/14/18 19:50 Blood - Peripheral Aerobic Blood Culture - Preliminary No growth in 1 day 07/14/18 19:50 Blood - Peripheral Anaerobic Blood Culture - Preliminary No growth in 1 day 07/14/18 19:45 Blood - Peripheral Aerobic Blood Culture - Preliminary No growth in 1 day 07/14/18 19:45 Blood - Peripheral Anaerobic Blood Culture - Preliminary No growth in 1 day 07/15/18 02:15 Abscess - Mouth Gram Stain - Final 07/15/18 02:15 Abscess - Mouth Gram Stain - Final - Imaging Impressions Soft Tissue Neck CT 07/14/18 19:36 CONCLUSION: Interim development of a right sublingual abscess. Chest X-Ray 07/15/18 00:00 CONCLUSION: Minimal basilar parenchymal opacities Assessment and Plan - Assessment (1) Abscess of sublingual gland Code(s): K11.3 - Abscess of salivary gland Status: Acute (2) Tooth abscess Code(s): K04.7 - Periapical abscess without sinus Status: Acute
[2018-07-15] MEDS: Morphine Inj 4 MG/ML Vial IV.PUSH PRN (22:00)
[2018-07-16] MEDS: Oral Hygiene Kit OROPHARYNG SCH ×4 (00:20→16:04)
[2018-07-16] MEDS: Chlorhexidine Gluconate 2% 1 Pack (2 Cloths) TOPICAL SCH (04:00)
[2018-07-16] MEDS: Morphine Inj 4 MG/ML Vial IV.PUSH PRN ×6 (05:50→23:40)
--- NOTE | 2018-07-16 07:12 | P.DS ---
Date of admission: 07/14/18 21:18 Primary care physician: No Primary Care Physician Attending physician on discharge: Wan Roberts Anticipated date of discharge: 07/17/18 Brief History from admission: 47-year-old male with no significant past medical history states that he developed pain and swelling under his jaw on 07/10/18. It progressively worsened and he has been evaluated in the emergency department on 2 prior occasions for this. It was recommended that he be admitted for IV antibiotics however he refused admission because he needed to get home to care for his children. He had a CT 07/12 which suggested sialoadenitis. He has been taking clindamycin p.o. at home. Despite that he has had progressive pain and swelling in the submandibular space and now has trismus and voice changes. No fever. He has dental caries with pain at right mandibular 1st molar. He presented to [facility] where he had an additional CT scan that demonstrates sublingual abscess with laryngeal deviation. He received cefepime, Flagyl IV, Decadron 10 mg IV in the emergency department. Dr. Fields was consulted and requested transfer to [facility] for operative management. He evaluated patient with me upon arrival and has decided to take patient to OR urgently. Patient update on day of discharge: Right molar tooth extracted and submandibular abscess drained the night of admission. Airway and pharyngeal exam the next morning much improved and patient extubated without difficulty. Bedside swallow acceptable without choking and airway remained widely patent. Initial Gram stain looks like staph or strep organism. Plan discharge with oral clindamycin for 10 days. Follow- up with Dr. Fields has been arranged. DS: Diagnosis - Discharge Diagnosis (1) Abscess of sublingual gland Status: Acute (2) Tooth abscess Status: Acute DS: Medications - Discharge Medications Prescriptions: clindamycin HCl 300 mg PO Q6H 10 Days #80 cap DS: Summary Hospital Course: 47-year-old male with no significant past medical history states that he developed pain and swelling under his jaw on 07/10/18. It progressively worsened and he has been evaluated in the emergency department on 2 prior occasions for this. It was recommended that he be admitted for IV antibiotics however he refused admission because he needed to get home to care for his children. He had a CT 07/12 which suggested sialoadenitis. He has been taking clindamycin p.o. at home. Despite that he has had progressive pain and swelling in the submandibular space and now has trismus and voice changes. No fever. He has dental caries with pain at right mandibular 1st molar. He presented to [facility] where he had an additional CT scan that demonstrates sublingual abscess with laryngeal deviation. He received cefepime, Flagyl IV, Decadron 10 mg IV in the emergency department. Dr. Fields was consulted and requested transfer to [facility] for operative management. He evaluated patient with me upon arrival and has decided to take patient to OR urgently. Lower right molar extracted and abscess drained in OR on the night of admission. Patient extubated the next morning with good protection of airway and suitable swallowing mechanism. - Time Spent with Patient Total time spent providing and/or coordinating discharge services: Less than 30 minutes - Quality: VTE Deep Vein Thrombosis/Pulmonary Embolism Present on Admission: Yes Exam Vital signs: Vital Signs 07/15/18 07:40 07/15/18 07:52 07/15/18 08:00 Temperature 97.1 F L Pulse Rate 72 Respiratory Rate 16 15 14 Blood Pressure 124/69 Pulse Oximetry 99 99 100 07/15/18 10:00 07/15/18 10:47 07/15/18 10:56 Temperature Pulse Rate 62 Respiratory Rate 29 H Blood Pressure Pulse Oximetry 100 99 07/15/18 12:00 07/15/18 14:00 07/15/18 16:00 Temperature 97.4 F L 97.2 F L Pulse Rate 64 58 L 70 Respiratory Rate 20 20 Blood Pressure 122/66 117/69 Pulse Oximetry 98 94 L 07/15/18 18:00 07/15/18 20:00 07/15/18 20:52 Temperature 99.1 F Pulse Rate 64 62 Respiratory Rate 18 Blood Pressure 115/67 Pulse Oximetry 95 95 07/15/18 20:59 07/15/18 22:00 07/15/18 22:24 Temperature Pulse Rate 60 Respiratory Rate 16 18 Blood Pressure Pulse Oximetry 07/16/18 00:00 07/16/18 02:00 07/16/18 04:00 Temperature 98.8 F 98.6 F Pulse Rate 62 55 L 52 L Respiratory Rate 18 14 Blood Pressure 110/59 L 98/57 L Pulse Oximetry 94 L 97 07/16/18 06:00 07/16/18 06:11 Temperature Pulse Rate 59 L Respiratory Rate 16 Blood Pressure Pulse Oximetry Intake & Output 07/15/18 07/16/18 07/16/18 18:59 06:59 18:59 Intake Total 1335 / 1335 2535 / 2535 Balance 1335 / 1335 2535 / 2535 Weight 91.8 kg Intake: IV 855 / 855 1815 / 1815 Diprivan 1000 mg/100 ml Inj 1, 40 / 40 000 mg In 100 ml @ 5 MCG/KG/MIN 2.688 mls/hr IV.CONT TITRATE PRN Rx#:[id number] Maxipime Inj 2,000 MG In NS Inj 200 / 200 200 / 200 100 ML @ 200 mls/hr IV.SIG Q8H EMMA Rx#:[id number] LR 1000 mL Inj 1,000 ML @ 100 900 / 900 mls/hr IV.SIG .Q10H EMMA Rx#: [id number] Vancomycin Inj 1,500 MG In NS 515 / 515 515 / 515 Inj 500 ML @ 250 mls/hr IV.SIG Q12H EMMA Rx#:[id number] Flagyl 500 MG Inj 100 ML @ 100 100 / 100 200 / 200 mls/hr IV.SIG Q8H EMMA Rx#: [id number] Oral 480 / 480 720 / 720 Other: # Voids 2 1 Date of Last Bowel Movement 07/13/18 07/13/18 # Bowel Movements 0 Narrative: Breathing comfortably, airway widely patent, swallow intact. Devika drain exiting small incision under right side of mandible. Results Procedures completed during hospitalization: Molar tooth extraction and tooth abscess drained into mouth and externally through incision in the right side of the neck. Labs on day of discharge: Labs from last 24 hours 07/15/18 07/15/18 06:36 06:36 WBC 22.4 H RBC 4.05 L Hgb 13.0 D Hct 38.0 L MCV 93.8 MCH 32.2 MCHC 34.3 RDW 13.1 Plt Count 164 MPV 8.6 Prelim Diff (Auto) Manual diff required WBC Differential Manual diff final Seg Neuts % (Manual) 91 H Band Neuts % (Manual) 7 H Lymphocytes % (Manual) 2 L Abs Neuts (Manual) 22.0 H Differential Comment . Platelet Estimate Normal Platelet Morphology Normal Sodium 143 Potassium 4.8 D Chloride 111 H Carbon Dioxide 21.6 Anion Gap 10 BUN 17 Creatinine 1.04 Estimated GFR 77 L Random Glucose 119 H Calcium 7.8 L D Preliminary micro results at discharge 07/14/18 19:50 Aerobic Blood Culture - Preliminary Blood - Peripheral No growth in 1 day Anaerobic Blood Culture - Preliminary No growth in 1 day 07/14/18 19:45 Aerobic Blood Culture - Preliminary Blood - Peripheral No growth in 1 day Anaerobic Blood Culture - Preliminary No growth in 1 day - Impressions ITS Impressions Soft Tissue Neck CT 07/14/18 19:36 CONCLUSION: Interim development of a right sublingual abscess. Chest X-Ray 07/15/18 00:00 CONCLUSION: Minimal basilar parenchymal opacities Discharge Plan - Discharge Disposition Patient Disposition: 01 Discharge Home - Discharge Condition Condition: Fair - Discharge Order Discharge Orders: Discharge Order (Routine); Ordered 07/17/18 Ordered By: Wan Roberts - Physicians Team Primary Care Provider: Primary Care Irene Melgar Attending Provider: Barbara Lucas Other Providers: Azael Fields DMD
[2018-07-16] MEDS: Senna/Docusate Sodium 8.6/50 MG Tablet PO SCH ×2 (08:46→20:19)
[2018-07-16] MEDS: Lactobacillus Acidophilus/L. Spores Tablet PO SCH ×2 (08:46→20:19)
[2018-07-16] MEDS: Chlorhexidine 0.12% Oral Kit 15 ML UDC OROPHARYNG SCH ×2 (08:46→20:16)
[2018-07-16] MEDS: Pantoprazole Inj 40 MG Vial IV.PUSH SCH (08:46)
--- NOTE | 2018-07-16 08:52 | P.PN ---
Subjective Interval history: POD 1 s/p I & D right mandible/neck multispace abscess and extraction of tooth # 31 pt seen and examined this morning aao, nad, wants to eat more ambulating, voiding, tolerating po well reports feeling much better denies f/c/n/v/sob/difficulty breathing/difficulty swallowing Physical Exam Vital signs: Vital Signs 07/15/18 10:00 07/15/18 10:47 07/15/18 10:56 Temperature Pulse Rate 62 Respiratory Rate 29 H Blood Pressure Pulse Oximetry 100 99 07/15/18 12:00 07/15/18 14:00 07/15/18 16:00 Temperature 97.4 F L 97.2 F L Pulse Rate 64 58 L 70 Respiratory Rate 20 20 Blood Pressure 122/66 117/69 Pulse Oximetry 98 94 L 07/15/18 18:00 07/15/18 20:00 07/15/18 20:52 Temperature 99.1 F Pulse Rate 64 62 Respiratory Rate 18 Blood Pressure 115/67 Pulse Oximetry 95 95 07/15/18 20:59 07/15/18 22:00 07/15/18 22:24 Temperature Pulse Rate 60 Respiratory Rate 16 18 Blood Pressure Pulse Oximetry 07/16/18 00:00 07/16/18 02:00 07/16/18 04:00 Temperature 98.8 F 98.6 F Pulse Rate 62 55 L 52 L Respiratory Rate 18 14 Blood Pressure 110/59 L 98/57 L Pulse Oximetry 94 L 97 07/16/18 06:00 07/16/18 06:11 07/16/18 07:35 Temperature Pulse Rate 59 L Respiratory Rate 16 Blood Pressure Pulse Oximetry 95 Intake & Output 07/15/18 07/16/18 07/16/18 18:59 06:59 18:59 Intake Total 1335 / 1335 2535 / 2535 Balance 1335 / 1335 2535 / 2535 Weight 91.8 kg Intake: IV 855 / 855 1815 / 1815 Diprivan 1000 mg/100 ml Inj 1, 40 / 40 000 mg In 100 ml @ 5 MCG/KG/MIN 2.688 mls/hr IV.CONT TITRATE PRN Rx#:[id number] Maxipime Inj 2,000 MG In NS Inj 200 / 200 200 / 200 100 ML @ 200 mls/hr IV.SIG Q8H EMMA Rx#:[id number] LR 1000 mL Inj 1,000 ML @ 100 900 / 900 mls/hr IV.SIG .Q10H EMMA Rx#: [id number] Vancomycin Inj 1,500 MG In NS 515 / 515 515 / 515 Inj 500 ML @ 250 mls/hr IV.SIG Q12H EMMA Rx#:[id number] Flagyl 500 MG Inj 100 ML @ 100 100 / 100 200 / 200 mls/hr IV.SIG Q8H EMMA Rx#: [id number] Oral 480 / 480 720 / 720 Other: # Voids 2 1 Date of Last Bowel Movement 07/13/18 07/13/18 # Bowel Movements 0 - Constitutional no acute distress - Routine HEENT Exam Head: Present: normocephalic ENT: Present: oropharynx clear Comments: neck softer - drain in place, dressing dry, no pus/bleeding noted significant decrease in right neck edema/tenderness intraorally -drain in place - no discharge noted no elevation floor of mouth/tongue, significant increase in mouth opening surgical sites hemostatic - all wound margins well approximated, tissues pink/ well perfused final cultures pending Results - Labs CBC & Chem 7: 07/15/18 06:36 07/15/18 06:36 Microbiology 07/14/18 19:50 Blood - Peripheral Aerobic Blood Culture - Preliminary No growth in 1 day 07/14/18 19:50 Blood - Peripheral Anaerobic Blood Culture - Preliminary No growth in 1 day 07/14/18 19:45 Blood - Peripheral Aerobic Blood Culture - Preliminary No growth in 1 day 07/14/18 19:45 Blood - Peripheral Anaerobic Blood Culture - Preliminary No growth in 1 day 07/15/18 02:15 Abscess - Mouth Gram Stain - Final 07/15/18 02:15 Abscess - Mouth Gram Stain - Final - Procedures Molar tooth extraction and tooth abscess drained into mouth and externally through incision in the right side of the neck. Assessment and Plan - Assessment (1) Tooth abscess Code(s): K04.7 - Periapical abscess without sinus Status: Acute (2) Abscess of sublingual gland Code(s): K11.3 - Abscess of salivary gland Status: Acute - Plan pod 1 s/p I&D right neck/mandible neck abscess and extraction #31 tooth cbc this am ok to transfer to regular floor/ transfer to [facility] service plan for drain removal tomorrow am and plan for discharge tomorrow soft diet final cultures pending
[2018-07-16] MEDS ORDERED: Pharmacy Ordered Lab Info OTHER ONE (10:45)
[2018-07-16] MEDS: Vancomycin Inj 1,500 MG in Sodium Chlor 0.9% Inj 500 ML IV.SIG SCH (11:49)
[2018-07-16] MEDS: Vancomycin Inj 1,750 MG in Sodium Chlor 0.9% Inj 500 ML IV.SIG SCH (22:31)
[2018-07-17] MEDS: Oral Hygiene Kit OROPHARYNG SCH ×3 (00:57→13:02)
[2018-07-17] MEDS: Morphine Inj 4 MG/ML Vial IV.PUSH PRN ×2 (02:25→06:00)
[2018-07-17] MEDS: Chlorhexidine Gluconate 2% 1 Pack (2 Cloths) TOPICAL SCH (03:14)
[2018-07-17 04:49] VITALS: TEMP 98
[2018-07-17 06:24] LABS: Baso % (Auto) 0.3 % (0.0-2.0); Eos % (Auto) 0.2 % (0.0-4.0); Hematocrit 38.3 % (39.0-51.0); Hemoglobin 12.9 gm/dL (13.0-17.0); Lymph # (Auto) 2.2 th/mm3 (1.0-4.8); Lymph % (Auto) 19.1 % (9.0-44.0); Mean Corpuscular HGB Conc 33.7 % (32.0-36.0); Mean Corpuscular Hemoglobin 32.4 pg (27.0-34.0); Mean Corpuscular Volume 96.2 fL (80.0-100.0); Mean Platelet Volume 8.4 fL (7.0-11.0); Mono # (Auto) 1.2 th/mm3 (0.0-0.9); Mono % (Auto) 10.2 % (0.0-8.0); Neut # (Auto) 8.2 th/mm3 (1.8-7.7); Neut % (Auto) 70.2 % (16.0-70.0); Platelet Count 158 th/mm3 (150-450); Red Blood Count 3.98 mil/mm3 (4.50-5.90); Red Cell Distribution Width 13.1 % (11.6-17.2); White Blood Count 11.7 th/mm3 (4.0-11.0)
--- NOTE | 2018-07-17 07:56 | P.PN ---
Subjective Interval history: POD 2 s/p I & D right mandible/neck multispace abscess and extraction of tooth # 31 pt seen and examined this morning, nurses at bedside amy ruiz, reports right ear stuffiness/ pain, wants to eat more ambulating, voiding, tolerating po well reports feeling much better denies f/c/n/v/sob/difficulty breathing/difficulty swallowing Physical Exam Vital signs: Vital Signs 07/16/18 08:00 07/16/18 10:00 07/16/18 12:00 Temperature 97.2 F L 97.9 F Pulse Rate 50 L 50 L 66 Respiratory Rate 14 20 Blood Pressure 111/77 126/85 Pulse Oximetry 95 96 07/16/18 14:00 07/16/18 16:00 07/16/18 18:00 Temperature 98.2 F Pulse Rate 58 L 62 56 L Respiratory Rate 18 Blood Pressure 141/88 H Pulse Oximetry 95 07/16/18 20:00 07/16/18 20:35 07/16/18 22:00 Temperature 98.9 F Pulse Rate 78 59 L Respiratory Rate 22 18 Blood Pressure 146/79 H Pulse Oximetry 98 07/16/18 22:11 07/17/18 00:00 07/17/18 02:00 Temperature 97.8 F Pulse Rate 46 L 49 L Respiratory Rate 18 Blood Pressure 132/89 Pulse Oximetry 97 94 L 07/17/18 02:30 07/17/18 04:00 07/17/18 06:00 Temperature 98 F Pulse Rate 44 L 50 L Respiratory Rate 16 12 Blood Pressure 129/87 Pulse Oximetry 94 L Intake & Output 07/16/18 07/17/18 07/17/18 18:59 06:59 18:59 Intake Total 2675 / 2675 2417.5 / 2417.5 Balance 2675 / 2675 2417.5 / 2417.5 Weight 98.7 kg Intake: IV 1715 / 1715 1917.5 / 1917.5 Maxipime Inj 2,000 MG In NS Inj 100 / 100 200 / 200 100 ML @ 200 mls/hr IV.SIG Q8H EMMA Rx#:[id number] LR 1000 mL Inj 1,000 ML @ 100 1000 / 1000 1000 / 1000 mls/hr IV.SIG .Q10H EMMA Rx#: [id number] Vancomycin Inj 1,750 MG In NS 515 / 515 517.5 / 517.5 Inj 500 ML @ 250 mls/hr IV.SIG Q12H EMMA Rx#:[id number] Flagyl 500 MG Inj 100 ML @ 100 100 / 100 200 / 200 mls/hr IV.SIG Q8H REPLACED BY [facility] Rx#: [id number] Oral 960 / 960 500 / 500 Other: # Voids 1 1 Date of Last Bowel Movement 07/13/18 07/13/18 # Bowel Movements 0 0 - Constitutional no acute distress - Routine HEENT Exam Head: Present: normocephalic ENT: Present: mucous membranes moist, oropharynx clear Comments: neck softer - drain in place, dressing dry, no pus/bleeding noted significant decrease in right neck edema/tenderness intraorally -drain in place - no discharge noted no elevation floor of mouth/tongue, significant increase in mouth opening surgical sites hemostatic - all wound margins well approximated, tissues pink/ well perfused significant decrease in wbc + hearing right ear - decreased Results - Labs CBC & Chem 7: 07/17/18 05:58 07/15/18 06:36 Laboratory Results - last 24 hr 07/16/18 07/17/18 11:55 05:58 WBC 11.7 H RBC 3.98 L Hgb 12.9 L Hct 38.3 L MCV 96.2 MCH 32.4 MCHC 33.7 RDW 13.1 Plt Count 158 MPV 8.4 Prelim Diff (Auto) Slide review pending Neut % (Auto) 70.2 H Lymph % (Auto) 19.1 [place] % (Auto) 10.2 H Eos % (Auto) 0.2 Baso % (Auto) 0.3 Neut # (Auto) 8.2 H Lymph # (Auto) 2.2 [place] # (Auto) 1.2 H Eos # (Auto) 0.0 Baso # (Auto) 0.0 Differential Comment . Vancomycin Trough 10.5 H Microbiology 07/15/18 02:15 Abscess - Mouth Gram Stain - Final 07/15/18 02:15 Abscess - Mouth Wound Culture - Preliminary 07/15/18 02:15 Abscess - Mouth Gram Stain - Final 07/15/18 02:15 Abscess - Mouth Wound Culture - Preliminary 07/14/18 19:50 Blood - Peripheral Aerobic Blood Culture - Preliminary No growth in 2 days 07/14/18 19:50 Blood - Peripheral Anaerobic Blood Culture - Preliminary No growth in 2 days 07/14/18 19:45 Blood - Peripheral Aerobic Blood Culture - Preliminary No growth in 2 days 07/14/18 19:45 Blood - Peripheral Anaerobic Blood Culture - Preliminary No growth in 2 days - Procedures Molar tooth extraction and tooth abscess drained into mouth and externally through incision in the right side of the neck. Assessment and Plan - Assessment (1) Tooth abscess Code(s): K04.7 - Periapical abscess without sinus Status: Acute (2) Abscess of sublingual gland Code(s): K11.3 - Abscess of salivary gland Status: Acute - Plan pod 2 s/p I&D right neck/mandible neck abscess and extraction #31 tooth cbc almost normal range clinically much better 2 mark drains removed - none remaining soft diet G+ cocci final cultures pending ENT consult right ear stuffiness/pain ok to d/c to home from oms standpoint f/up [address] matos [phone] maintain good oral hygiene no drinking with straws
[2018-07-17] MEDS: Lactobacillus Acidophilus/L. Spores Tablet PO SCH (08:51)
[2018-07-17] MEDS: Senna/Docusate Sodium 8.6/50 MG Tablet PO SCH (08:51)
[2018-07-17] MEDS: Pantoprazole Inj 40 MG Vial IV.PUSH SCH (08:52)
[2018-07-17] MEDS: Chlorhexidine 0.12% Oral Kit 15 ML UDC OROPHARYNG SCH (09:03)
[2018-07-17 09:29] VITALS: O2SAT 98
[2018-07-17 09:30] VITALS: BP 125/76; RESP 16
--- NOTE | 2018-07-17 11:43 | P.PNCC ---
Subjective Subjective Remarks/Hospital Course: 47-year-old male with no significant past medical history states that he developed pain and swelling under his jaw on 07/10/18. It progressively worsened and he has been evaluated in the emergency department on 2 prior occasions for this. It was recommended that he be admitted for IV antibiotics however he refused admission because he needed to get home to care for his children. He had a CT 07/12 which suggested sialoadenitis. He has been taking clindamycin p.o. at home. Despite that he has had progressive pain and swelling in the submandibular space and now has trismus and voice changes. No fever. He has dental caries with pain at right mandibular 1st molar. He presented to [facility] where he had an additional CT scan that demonstrates sublingual abscess with laryngeal deviation. He received cefepime, Flagyl IV, Decadron 10 mg IV in the emergency department. Dr. Fields was consulted and requested transfer to [facility] for operative management. He evaluated patient with me upon arrival and has decided to take patient to OR urgently. Lower right molar extracted and abscess drained in OR on the night of admission. Patient extubated the next morning with good protection of airway and suitable swallowing mechanism. 07/17: Drains removed today. Patient continues to receive broad-spectrum antibiotic coverage until speciation of the organism is finalized. Plan clindamycin for discharge but may need to cover resistant staph depending on culture result. Objective Vital Signs / I&O: Vital Signs 07/16/18 12:00 07/16/18 14:00 07/16/18 16:00 Temperature 97.9 F 98.2 F Pulse Rate 66 58 L 62 Respiratory Rate 20 18 Blood Pressure 126/85 141/88 H Pulse Oximetry 96 95 07/16/18 18:00 07/16/18 20:00 07/16/18 20:35 Temperature 98.9 F Pulse Rate 56 L 78 Respiratory Rate 22 18 Blood Pressure 146/79 H Pulse Oximetry 98 07/16/18 22:00 07/16/18 22:11 07/17/18 00:00 Temperature 97.8 F Pulse Rate 59 L 46 L Respiratory Rate 18 Blood Pressure 132/89 Pulse Oximetry 97 94 L 07/17/18 02:00 07/17/18 02:30 07/17/18 04:00 Temperature 98 F Pulse Rate 49 L 44 L Respiratory Rate 16 12 Blood Pressure 129/87 Pulse Oximetry 94 L 07/17/18 06:00 07/17/18 08:00 07/17/18 10:00 Temperature 98 F Pulse Rate 50 L 59 L 63 Respiratory Rate 16 Blood Pressure 125/76 Pulse Oximetry 98 Intake & Output 07/16/18 07/17/18 07/17/18 18:59 06:59 18:59 Intake Total 2675 / 2675 2417.5 / 2417.5 Balance 2675 / 2675 2417.5 / 2417.5 Weight 98.7 kg Intake: IV 1715 / 1715 1917.5 / 1917.5 Maxipime Inj 2,000 MG In NS Inj 100 / 100 200 / 200 100 ML @ 200 mls/hr IV.SIG Q8H EMMA Rx#:[id number] LR 1000 mL Inj 1,000 ML @ 100 1000 / 1000 1000 / 1000 mls/hr IV.SIG .Q10H EMMA Rx#: [id number] Vancomycin Inj 1,750 MG In NS 515 / 515 517.5 / 517.5 Inj 500 ML @ 250 mls/hr IV.SIG Q12H EMMA Rx#:[id number] Flagyl 500 MG Inj 100 ML @ 100 100 / 100 200 / 200 mls/hr IV.SIG Q8H EMMA Rx#: [id number] Oral 960 / 960 500 / 500 Other: # Voids 1 1 Date of Last Bowel Movement 07/13/18 07/13/18 07/13/18 # Bowel Movements 0 0 Result Diagrams: 07/17/18 05:58 07/15/18 06:36 Objective Remarks: Neuro: Alert oriented conversant Head: Moderate edema bilateral submandibular region and face. Neck: Supple, airway widely patent, tender to palpation right side. Slit drainage track right anterior triangle under mandible. Lungs: Clear, no wheezes or crackles Heart: Regular rate and rhythm Assessment and Plan - Problem List (1) Abscess of sublingual gland Code(s): K11.3 - Abscess of salivary gland Status: Acute (2) Tooth abscess Code(s): K04.7 - Periapical abscess without sinus Status: Acute - Assessment and Plan Plan: NEURO: Toradol as needed for pain. Morphine as needed for breakthrough pain. Fentanyl/propofol drips and versed prn for sedation postoperatively. Target RASS -2 to -3. RESP: On room air pre-op Acute respiratory failure Tobacco abuse Remains intubated post-operatively per Dr. Fields for maintenance of airway. PRVC/Vent Bundle/Albuterol prn CV: Monitor vitals GI: NPO FEN/RENAL: Normal creatinine and electrolytes. Monitor intake and output. Monitor electrolytes and replace as indicated. LR 100 mL/h ID: Right sublingual and submandibular abscess with dental caries Leukocytosis Operative debridement and dental extraction will be performed by Dr. Fields. His assistance is very much appreciated. Patient states he has been told since childhood that he is allergic to penicillin. He is uncertain of the nature of the reaction. He has failed outpatient management with clindamycin.. He did receive cefepime and Flagyl in the emergency department and has not had any evidence of allergic reaction. Will continue cefepime/flagyl and add vancomycin for now. Dr. Fields will perform intraoperative cultures, so will narrow antibiotics based on culture results and sensitivities. I have also ordered blood cultures Received Decadron [address] Fields recommendations, will give Solumedrol 125 mg IV q6 hours x2 doses and then Decadron 8 mg IM. HEME: No acute hematologic issues. ENDO: Monitor bedside glucose AC/hs while on steroids and administer low-dose insulin sliding scale as indicated. PROPH: SCDs for DVT prophylaxis. Held off on pharmacologic DVT prophylaxis at this time as he is going to the OR. Protonix 40 mg IV daily for stress ulcer prophylaxis as he is n.p.o. and on steroids. ACCESS: Peripheral IV providing adequate access at this time. Full code Overall impression: Patient complains of some fullness in his right ear and a very sore throat. Dr. Fields has requested that the ENT service to evaluate patient. Awaiting speciation of gram-positive organisms seen in abscess contents.
[2018-07-17] MEDS: Vancomycin Inj 1,750 MG in Sodium Chlor 0.9% Inj 500 ML IV.SIG SCH ×2 (11:46→13:51)
[2018-07-17 15:05] VITALS: PULSE 64
[2018-07-18] MEDS ORDERED: Pharmacy Ordered Lab Info OTHER ONE (10:45)
== END 2018-07-17 16:54 | disposition home or self-care (01) ==
LOC: PHED 18:49 → PHEDA 21:18 → N03 23:24
PROVIDERS: ADMIT Internal Medicine; ATTEND Internal Medicine
PROC: IDMOUTH (2018-07-15 01:29)